=== PATIENT | male | born 1960 | race Caucasian/White ===

== ENCOUNTER 2018-06-09 10:57 | Observation (INO) ==
[2018-06-09] MEDS: Furosemide 40 MG/4 ML VIAL IVP ONE ×2 (11:37→12:35)
[2018-06-09 11:48] LABS: Basophils % 0.4 %; Eosinophils % 0.4 %; Hematocrit 40.6 % (37.5-50.1); Hemoglobin 13.3 g/dL (12.9-16.9); Immature Granulocytes % 0.2 % (0-4); Lymphocytes # 2.1 K/mcL (0.6-4.6); Lymphocytes % 22.5 %; Mean Corpuscular HGB Conc 32.8 g/dL (31.6-35.5); Mean Corpuscular Hemoglobin 30.2 pg (28.0-33.3); Mean Corpuscular Volume 92.1 fL (83.0-100.0); Monocytes # 0.7 K/mcL (0.0-1.3); Monocytes % 7.1 %; Neutrophils # 6.4 K/mcL (1.6-8.9); Platelet Count 259 K/mcL (140-400); Red Blood Count 4.41 M/mcL (4.19-5.50); Red Cell Distribution Width 15.6 % (11.5-14.5); Segmented Neutrophils % 69.4 %
[2018-06-09 12:10] LABS: BUN/Creatinine Ratio 25 (6-26); Blood Urea Nitrogen 34 mg/dL (6-20); Calcium 9.4 mg/dL (8.6-10.3); Carbon Dioxide 25 mEq/L (23-29); Chloride 106 mEq/L (98-107); Glucose 124 mg/dL (70-105); Osmolality,Calculated 297 (280-300); Potassium 4.4 mEq/L (3.5-5.1); Sodium 139 mEq/L (136-145); eGFR For Non-African Americans 53 (> 60)
[2018-06-09 12:18] LABS: Troponin I 0.08 ng/mL (< 0.04)
--- NOTE | 2018-06-09 12:57 | Emergency Department Note ---
Disposition Clinical Impression: Congestive heart failure Qualifiers: Heart failure type: unspecified Heart failure chronicity: unspecified Qualified Code(s): I50.9 - Heart failure, unspecified Disposition: Admitted As Inpatient Condition: Fair Time of Disposition: 13:10 General Adult HPI - General Chief complaint: ED Shortness of Breath/Dyspnea Stated complaint: GIOVANNY Time Seen by Provider: 06/09/18 11:06 Source: patient Limitations: no limitations Nursing Notes Reviewed: Yes Vital Signs Reviewed: Yes - History of Present Illness HPI Narrative: - HPI by Bunny Villalobos DO 57-year-old male presents emergency Department with concerns of worsening dyspnea, weakness, fatigue. Patient states he was evaluated at [facility] with a negative heart catheterization, he had an echo performed which showed a decreased ejection fraction. Patient states a large amount fluid was reviewed and moved while he was at [facility] one week ago. He states he was discharged with prescription of Lasix which he has been taking daily however he states he does not urinate more after taking the medication at home. Patient believes he is not on enough of the medication at home. Patient states he is unable to ambulate in his house secondary to shortness of breath and weakness. Patient has bilateral lower extremity swelling however he states right lower extremity is worse. It has been right greater than left swelling since he was evaluated at [facility]. He states he had a ultrasound performed of the bilateral lower extremities which was negative for DVT. Patient has no pain to the posterior calf. Pain Scale: 0 - Related Data Home Medications Medication Instructions Recorded Confirmed Aspirin [Lo-Dose Aspirin EC] 81 mg PO DAILY 06/09/18 06/09/18 Furosemide [Lasix] 20 mg PO DAILY 06/09/18 06/09/18 Metoprolol [Lopressor] 25 mg PO DAILY 06/09/18 06/09/18 Allergies Allergy/AdvReac Type Severity Reaction Status Date / Time tramadol AdvReac Rash Verified 06/09/18 11:25 Past Medical History - Past Medical History Medical history: Reports: GERD, hypertension Psychiatric history: Reports: no psych history - Social History Smoking Status: Current every day smoker Smokeless Tobacco Status: No Alcohol use: Reports: none Drug use: Reports: marijuana Physical Exam Right sided scrotal and upper leg swelling without tenderness. - General Limitations: no limitations General appearance: alert, in no apparent distress - Head Head exam: atraumatic, normocephalic - Eye Eye exam: Present: normal appearance, PERRL, EOMI - ENT ENT exam: normal exam, normal oropharynx - Neck Neck exam: Present: normal inspection. Absent: tenderness, lymphadenopathy - Chest Chest inspection: Present: normal inspection, symmetric chest wall rise - Respiratory Respiratory exam: Present: other (diminished breath sounds with linda rhonchi) - Cardiovascular Cardiovascular exam: Present: normal rhythm, tachycardia - Abdominal Exam Abdominal exam: Present: soft, Non-Tender. Absent: distention, guarding, rebound, rigidity - Extremities Exam Extremities exam: Present: pedal edema (2+ pedal edema). Absent: tenderness, calf tenderness - Neurological Exam Neurological exam: Present: alert, oriented X3, CN II-XII intact - Psychiatric Psychiatric exam: Present: normal affect, normal mood - Skin Skin exam: Present: warm, dry, intact Course Vital Signs Temperature 97.6 F 06/09/18 10:59 Pulse Rate 105 06/09/18 10:59 Respiratory Rate 20 06/09/18 10:59 Blood Pressure 130/93 06/09/18 10:59 O2 Sat by Pulse Oximetry 100 06/09/18 10:59 Temperature 97.7 F 06/10/18 11:16 Pulse Rate 81 06/10/18 11:16 Respiratory Rate 16 06/10/18 11:16 Blood Pressure 117/80 06/10/18 11:16 O2 Sat by Pulse Oximetry 98 06/10/18 13:35 Oxygen Delivery Oxygen Delivery Room Air Medical Decision Making - [facility] Narrative Medical decision making narrative: Due to this patient's recent admission and discharge for CHF exacerbation and his current complaints we will obtain a workup to see what his fluid status is at this time. We will also give him some IV Lasix and plan for admission. 1300 - lab work has returned with significant elevation in troponin of 0.08 and BNP of 1941. EKG does not show any signs of ischemia and patient still has no chest pain. Dr. Harden has accepted the patient for admission. - Medical Records Medical records reviewed: Yes I reviewed the patient's medical records. - Lab Data Lab results reviewed: Yes I reviewed the patient's lab results. Result diagrams: 06/10/18 05:30 06/10/18 05:30 Lab Results 06/09/18 06/09/18 06/09/18 Range/Units 11:29 11:29 11:29 WBC 9.2 (4.3-11.1) K/mcL RBC 4.41 (4.19-5.50) M/mcL Hgb 13.3 (12.9-16.9) g/dL Hct 40.6 (37.5-50.1) % MCV 92.1 (83.0-100.0) fL MCH 30.2 (28.0-33.3) pg MCHC 32.8 (31.6-35.5) g/dL RDW 15.6 H (11.5-14.5) % Plt Count 259 (140-400) K/mcL MPV 10.0 (9.4-12.4) fL Immature Gran % 0.2 (0-4) % Seg Neutrophils % 69.4 % Lymphocytes % 22.5 % Monocytes % 7.1 % Eosinophils % 0.4 % Basophils % 0.4 % Neutrophils # 6.4 (1.6-8.9) K/mcL Lymphocytes # 2.1 (0.6-4.6) K/mcL Monocytes # 0.7 (0.0-1.3) K/mcL Eosinophils # 0.0 (0.0-0.6) K/mcL Basophils # 0.0 (0.0-0.2) K/mcL Sodium 139 (136-145) mEq/L Potassium 4.4 (3.5-5.1) mEq/L Chloride 106 (98-107) mEq/L Carbon Dioxide 25 (23-29) mEq/L BUN 34 H (6-20) mg/dL Creatinine 1.38 H (0.70-1.30) mg/dL Est GFR ( Amer) > 60 (> 60) Est GFR (Non-Af Amer) 53 L (> 60) BUN/Creatinine Ratio 25 (6-26) Glucose 124 H (70-105) mg/dL Calculated Osmolality 297 (280-300) Calcium 9.4 (8.6-10.3) mg/dL Troponin I 0.08 H* (< 0.04) ng/mL B-Natriuretic Peptide 1941 H (Less than 100) pg/mL - Radiology Data Radiology results reviewed: Yes I reviewed the patient's radiology results. - EKG Data EKG #1 EKG attestation: Yes I reviewed and interpreted this EKG. EKG results narrative: EKG obtained at 11:33 on 06/09/2018 Heart rate 102 bpm, OR interval 140, QRS duration 146, QT 355, QTc 463 Sinus tachycardia with probable left atrial enlargement. Nonspecific intraventricular conduction delay. There is some flattening of the T waves in all leads. No signs of ST segment elevation or depression. No old EKG for comparison. Attestation Statement - Attestation Attestation: I, Bunny Villalobos, examined this patient and my medical decision-making was reviewed with the TOOL REPAIRER/PA/Advanced Practice Nurse/Resident Physician. I agree with the documented findings, disposition and treatment plan as described except to the extent set forth below. 57-year-old male presents emergency Department with concerns of worsening dyspnea, weakness, fatigue. Patient states he was evaluated at [facility] with a negative heart catheterization, he had an echo performed which showed a decreased ejection fraction. Patient states a large amount fluid was reviewed and moved while he was at [facility] one week ago. He states he was discharged with prescription of Lasix which he has been taking daily however he states he does not urinate more after taking the medication at home. Patient believes he is not on enough of the medication at home. Patient states he is unable to ambulate in his house secondary to shortness of breath and weakness. Patient has bilateral lower extremity swelling however he states right lower extremity is worse. It has been right greater than left swelling since he was evaluated at [facility]. He states he had a ultrasound performed of the bilateral lower extremities which was negative for DVT. Patient has no pain to the posterior calf. Chest x-ray does not show acute infiltrate. He does have a mildly elevated troponin and elevated BNP. Patient will be admitted to the hospital for further care and evaluation of his likely congestive heart failure and adjustment of his medications and for further evaluation of this weakness.
[2018-06-09] MEDS ORDERED: *HR* HYDROcodone/Acet 5/325 mg TABLET PO PRN (14:41)
[2018-06-09] MEDS ORDERED: Acetaminophen 325 MG TABLET PO PRN (14:41)
[2018-06-09] MEDS ORDERED: Naloxone 0.4 MG/ML INJ IVP PRN (14:41)
[2018-06-09] MEDS ORDERED: Ondansetron 4 MG/2 ML VIAL IVP PRN (14:41)
[2018-06-09] MEDS ORDERED: *HR* Promethazine 25 MG/ML VIAL IVP PRN (14:41)
[2018-06-09] MEDS ORDERED: Ipratropium/Albuterol Neb 3 ML IH PRN (15:37)
--- NOTE | 2018-06-09 16:01 | Internal Med History&Physical ---
Date of Encounter: 06/09/18 Time of Encounter: 15:58 Internal Medicine - H&P: HPI Chief complaint: Shortness of breath Admitted From: Emergency Dept Plans for Post Hospital Care: Home History of present illness: Mr. Leong is a 57 year old male with known PMH of HTN, COPD, CHF and chronic tobacco dependence pt presented to ER with worsening SOB and volume overload. He was recently admitted at [facility] for CHF exacerbation had aggressive diuresis, 2D Echo and LHC. He was sent home on lasix 20mg daily. Pt denied any CP. He does smoke 1 PPD , which now he cut down to 1/2 PPD. Denied any cough with expectoration. He does have 1+ pitting edema in both legs Past Med Surg Social Fam HX - Past Medical History Medical history: GERD, hypertension Additional medical history: spina bifida Psychiatric history: no psych history - Past Surgical History Additional surgical history: removed goiter - Social History Smoking Status: Current every day smoker Smokeless Tobacco Status: No Alcohol use: none Drug use: marijuana - Family History Mother Hx Family Cardiac Disorders: Yes Hx Family Neurologic Disorders: Yes Father Hx Family Cardiac Disorders: Yes Internal Medicine - H&P: Meds Aspirin [Lo-Dose Aspirin EC] 81 mg PO DAILY 06/09/18 [History] Furosemide [Lasix] 20 mg PO DAILY 06/09/18 [History] Metoprolol [Lopressor] 25 mg PO DAILY 06/09/18 [History] Allergy/AdvReac Type Severity Reaction Status Date / Time tramadol AdvReac Rash Verified 06/09/18 11:25 All Systems PM: A 10-system review of systems was performed and is negative for pertinent findings except as documented above in the HPI. Review of systems: All the systems are reviewed everything is benign except the systems and symptom s I mentioned in the history of present illness - Constitutional Vitals: Temp Pulse Resp BP Pulse Ox 97.4 F L 105 16 125/89 99 06/09/18 14:37 06/09/18 14:37 06/09/18 14:37 06/09/18 14:37 06/09/18 14:37 General appearance: Present: cooperative, A&O X 3, no acute distress, answers questions appropriately Exam: see below - Head Head exam: Present: atraumatic, normal inspection - Neck Neck exam general surgery: Present: supple - Respiratory Respiratory exam: Present: decreased breath sounds. Absent: rales, respiratory distress, rhonchi, wheezes - Cardiovascular Cardiovascular exam: Present: RRR, +S1, +S2. Absent: tachycardia - GI/Abdominal GI/Abdominal exam: Present: normal bowel sounds, soft. Absent: rebound, rigid, tenderness - Extremities Exam Extremities exam: Present: pedal edema (1+). Absent: calf tenderness, tenderness - Back Exam Back exam: Absent: CVA tenderness (L), CVA tenderness (R) - Neurological Exam Neurological exam: Present: alert, oriented X3 - Psychiatric Psychiatric exam: Present: normal affect, normal mood - Skin Skin exam: Absent: rash Internal Med - H&P Results - Labs CBC & Chem 7: 06/09/18 11:29 06/09/18 11:29 Labs: Short CBC 06/09/18 Range/Units 11:29 WBC 9.2 (4.3-11.1) K/mcL Hgb 13.3 (12.9-16.9) g/dL Hct 40.6 (37.5-50.1) % Plt Count 259 (140-400) K/mcL Neutrophils # 6.4 (1.6-8.9) K/mcL BMP 06/09/18 11:29 Sodium 139 Potassium 4.4 Chloride 106 Carbon Dioxide 25 BUN 34 H Creatinine 1.38 H Glucose 124 H Calcium 9.4 Cardiac Enzymes 06/09/18 Range/Units 11:29 Troponin I 0.08 H* (< 0.04) ng/mL - Impressions ITS Impressions Chest X-Ray 06/09/18 11:22 IMPRESSION: Left basilar/retrocardiac reticulonodular opacities suggesting infectious/inflammatory process, possibly bronchiolitis. D/ / Ayo Harrison MD / Ayo Harrison MD Interpreting Provider: Ayo Harrison MD - Assessment and plan (1) Acute CHF Current Visit: Yes Status: Acute Assessment and plan: Place the pt into tele for observation Moslty diastolci CHF no Echo to review since he recently had 2 D Echo and LHC at [facility] will obtain Medical records started on IV Lasix 40 BID Cont ASA and BB Metoprolol strict I & O Trend on trop Qualifiers: Heart failure type: unspecified Qualified Code(s): I50.9 - Heart failure, unspecified (2) Elevated troponin Current Visit: Yes Status: Acute Assessment and plan: Due demand ishcemia with CHF exacerbation No further work up needed had [facility] recently a week ago at [facility] will obtain medical records (3) YONNY (acute kidney injury) Current Visit: Yes Status: Acute Assessment and plan: Her Cr @ 1.38 YONNY vs CKD-2 unclear cont close monitoring for now (4) HTN (hypertension) Current Visit: Yes Status: Acute Assessment and plan: resumed all home meds Qualifiers: Hypertension type: essential hypertension Qualified Code(s): I10 - Essential (primary) hypertension (5) COPD (chronic obstructive pulmonary disease) Current Visit: Yes Status: Acute Assessment and plan: not in exacerbation he does need to be on Albuterol INH + Symbicort started him on both now need rx to go home Qualifiers: COPD type: emphysema Emphysema type: unspecified Qualified Code(s): J43.9 - Emphysema, unspecified (6) Bronchiolitis Current Visit: Yes Status: Acute Assessment and plan: Reviewed CXR showed bronchiolitis No signs of infection started him on Symbicort counseled to quit smoking (7) Tobacco dependence Current Visit: Yes Status: Acute Assessment and plan: Counseled to quit smoking placed on nicotine patch - Time Spent With Patient Total time spent is greater than 50% in coordination of care (as documented) at patient's floor/unit and/or counseling patient:
[2018-06-09] MEDS: Furosemide 40 MG/4 ML VIAL IVP SCH (17:24)
[2018-06-09] MEDS: Budesonide/Formoterol 80/4.5 MDI IH SCH (23:24)
[2018-06-10 06:26] LABS: Hematocrit 38.1 % (37.5-50.1); Hemoglobin 12.6 g/dL (12.9-16.9); Mean Corpuscular HGB Conc 33.1 g/dL (31.6-35.5); Mean Corpuscular Hemoglobin 30.4 pg (28.0-33.3); Mean Corpuscular Volume 91.8 fL (83.0-100.0); Mean Platelet Volume 10.3 fL (9.4-12.4); Platelet Count 231 K/mcL (140-400); Red Blood Count 4.15 M/mcL (4.19-5.50); Red Cell Distribution Width 15.6 % (11.5-14.5)
[2018-06-10 06:45] LABS: Alanine Aminotransferase 92 Units/L (7-52); Albumin 3.5 g/dL (3.5-5.7); Albumin/Globulin Ratio 1.5 (1.1-2.2); Alkaline Phosphatase 144 Units/L (34-104); Aspartate Amino Transferase 72 Units/L (13-39); BUN/Creatinine Ratio 24 (6-26); Bilirubin,Total 0.4 mg/dL (0.3-1.0); Blood Urea Nitrogen 33 mg/dL (6-20); Calcium 9.1 mg/dL (8.6-10.3); Carbon Dioxide 26 mEq/L (23-29); Chloride 105 mEq/L (98-107); Chol/HDL Ratio 3.6 (0-4.9); Cholesterol 107 mg/dL (< 200); Globulin 2.4 g/dL (2.4-3.5); Glucose 117 mg/dL (70-105); HDL Cholesterol 30 mg/dL (40-59); LDL Cholesterol,Calculated 60 mg/dL (0-99); Magnesium 2.2 mg/dL (1.6-2.6); Osmolality,Calculated 294 (280-300); Sodium 138 mEq/L (136-145); Total Protein 5.9 g/dL (6.4-8.9); Triglycerides 87 mg/dL (< 150); eGFR For Non-African Americans 54 (> 60)
[2018-06-10] MEDS: Budesonide/Formoterol 80/4.5 MDI IH SCH (08:00)
[2018-06-10] MEDS: Furosemide 40 MG/4 ML VIAL IVP SCH (08:51)
[2018-06-10] MEDS ORDERED: Nicotine 14 MG PATCH.TD24 TD SCH (09:00)
[2018-06-10] MEDS ORDERED: Aspirin Enteric Coated 81 MG Tablet PO SCH (09:00)
[2018-06-10 11:17] VITALS: BP 117/80
--- NOTE | 2018-06-10 16:28 | Discharge Summary ---
- NOTES TO OUTPATIENT PROVIDER Notes to Outpatient Provider: Presented in CHF exacerbation-diuresed with Lasix- left AGAINST MEDICAL ADVICE to continue with home Lasix and to follow-up with cardiology Orders not resulted at time of discharge: Pending orders 06/10/18 14:03 EKG [ECG 12 lead ECG] [ECG] Routine Date of Encounter: 06/10/18 Time of Encounter: 14:00 - Discharge Diagnosis (1) Acute CHF Priority: Primary Status: Acute Qualifiers: Heart failure type: unspecified Qualified Code(s): I50.9 - Heart failure, u nspecified (2) HTN (hypertension) Priority: Secondary Status: Acute Qualifiers: Hypertension type: essential hypertension Qualified Code(s): I10 - Essential (primary) hypertension (3) COPD (chronic obstructive pulmonary disease) Priority: Secondary Status: Acute Qualifiers: COPD type: emphysema Emphysema type: unspecified Qualified Code(s): J43.9 - Emphysema, unspecified (4) Bronchiolitis Priority: Secondary Status: Acute (5) Tobacco dependence Priority: Secondary Status: Acute (6) Elevated troponin Priority: Secondary Status: Acute (7) YONNY (acute kidney injury) Priority: Secondary Status: Acute Hospital course: Mr. Leong is a 57 year old male past history of hypertension COPD CHF and chronic tobacco dependence presented to [facility] ER with worsening source of breath and volume overload-+1 pitting edema to the legs bilaterally. Was recently admitted to [facility] for CHF exacerbation and had aggressive diuresis 2- D echo and a left heart catheter. He was then sent home on Lasix 20 mg daily chest x-ray did show left basilar retrocardiac reticulonodular opacities suggesting infectious/inflammatory process possibly bronchiolitis. Medical records from [facility] were requested to review 2-D echo and [facility] patient was started on IV Lasix and diuresed overnight troponin was slightly elevated on presentation however suspect related to demand ischemia secondary to CHF exacerbation. Troponins continued to trend flat adynamic she did not have any chest pain during admission. I did obtain a EKG did show T-wave inversions in to 3 aVF as well as in lateral leads however there is no EKG to compare it to. Explained to the patient that awaiting records and would like to compare EKG to previous records. Patient states that he did not want to wait any longer and would like to leave AGAINST MEDICAL ADVICE-he said he would follow up with the residency clinic. Advised patient to continue hold medications and to follow-up with residency clinic patient-explained the risks including possible left AGAINST MEDICAL ADVICE - Time Spent with Patient Total time spent providing and/or coordinating discharge services: - Discharge Medications Home Medications: Aspirin [Lo-Dose Aspirin EC] 81 mg PO DAILY 06/09/18 [History] Furosemide [Lasix] 20 mg PO DAILY 06/09/18 [History] Metoprolol [Lopressor] 25 mg PO DAILY 06/09/18 [History] Allergies/Adverse Reactions: Allergy/AdvReac Type Severity Reaction Status Date / Time tramadol AdvReac Rash Verified 06/09/18 11:25 Date of admission: 06/09/18 13:11 Primary care physician: PCP NONE - Constitutional Vitals: Temp Pulse Resp BP Pulse Ox 97.7 F 81 16 117/80 98 06/10/18 11:16 06/10/18 11:16 06/10/18 11:16 06/10/18 11:16 06/10/18 13:35 General appearance: Present: cooperative, A&O X 3, no acute distress, answers questions appropriately Exam: see below - Patient Status Disposition: Left Against Medical Advice Condition: Fair - Discharge Instructions Follow Up With: NONE,PCP [Primary Care Provider] -
--- NOTE | 2018-06-11 05:28 | Electrocardiograph Report ---
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
--- NOTE | 2018-06-13 14:44 | Electrocardiograph Report ---
[address] [place], [place] [address] Test Date: 2018-06-10 Pat Name: Mick Leong Department: 113 Room: 3B45 Gender: M Seo Expert: : 1960 Requested By: Krystyna Diaz Order Number: [id number] Reading MD: Mandie Hu Measurements Intervals [place] Rate: 82 P: 76 LA: 147 QRS: 68 QRSD: 105 T: 257 QT: 405 QTc: 444 Interpretive Statements SINUS RHYTHM LEFT ATRIAL ENLARGEMENT POSSIBLE RIGHT VENTRICULAR CONDUCTION DELAY MODERATE T-WAVE ABNORMALITY, CONSIDER LATERAL ISCHEMIA Electronically Signed On 06-13-2018 14:43:09 EST by Mandie Hu
== END 2018-06-10 15:30 | disposition left against medical advice (07) ==
LOC: EMEROOARM 10:57 → 3BNU 10:57
PROVIDERS: ADMIT Student in an Organized Health Care Education/Training Program; ATTEND Student in an Organized Health Care Education/Training Program